=== PATIENT | male | born 1960 | race Caucasian/White ===

== ENCOUNTER 2022-02-23 14:42 | Emergency (ER) | payer OTHER ==
--- OUTSIDE RECORDS SUMMARY | 2022-02-23 14:46 | XMS REPORT | Continuity of Care Document ---
:1960 Author Organization [facility] t Address [address] [place] [address] Care Team Providers Name Role Phone Hood Hernandez DO Primary Care Physician Hood Hernandez Attending Clinician Unavailable Roberta Amador Attending Clinician Payers Payer Name Policy Type Policy Number Effective Date Expiration Date S ource Problems Condition Condition Condition Status Onset Resolution Last Treating Co mments Source Name Details Category Date Date Treatment Clinician Date Essential Essential Disease Active Uni vers hypertensi hypertensi 4-15 it y of on on 00:00: [address] Hyperlipid Hyperlipid Disease Active U nivers emia with emia with 4-15 [place] 00 [facility] lipoprotei lipoprotei Br anch n (LDL) n (LDL) cholestero cholestero l less l less than 100 than 100 mg/dL mg/dL Allergies, Adverse Reactions, Alerts Allergy Allergy Status Severity Reaction(s) Onset Inactive Treating Comm ents Source Name Type Date Date Clinician Iodine Propensi Active Unknown - Unive rs ty to See comments 4-15 ity of adverse 00:00: [place] reaction 00 Medical s Branch Social History Social Habit Start Date Stop Date Quantity Comments Source Alcohol intake 2021-12-16 2021-12-16 Current drinker Lisa rsity of 00:00:00 00:00:00 of alcohol [place] [facility] (finding) [facility] History of 2004-09-26 Smoker University of tobacco use 00:00:00 [facility] Sex Ass[birth year] At [birth year] Universit y of 00:00:00 00:00:00 [facility] Smoking Status Start Date Stop Date Source Former smoker 2019-10-09 00:00:00 2019-10-09 00:00:00 Universi ty of [facility] Medications Ordered Filled Start Stop Current Ordering Indication Dosage Frequency Signature Comments Components Source Medication Medication Date Date Medication? Clinician (SIG) Name Name ampicillin 2021- Yes [id number] 500mg Take 1 Univers 500 mg 12-16 capsule by ity of capsule 00:00: 04:59 mouth [place] 00 :00 every 6 Medical (six) Branch hours for 7 days. cetirizine Yes Take by [facility] ers HCl (ZYRTEC 1-16 mouth. ity of ORAL) 09:54: [place] 34 Medical Branch fluticasone Yes [id number] 2{spray Use 2 Univers propionate 1-16 } Sprays in ity of 50 00:00: each [place] mcg/actuati 00 nostril Medic al on nasal daily. Branch spray ATENOLOL 50 Yes [id number] TAKE ONE Univers mg tablet 1-28 TABLET BY ity o f 00:00: MOUTH 00 DAILY Medical Branch LOVASTATIN 2019-06 Yes [id number] TAKE ONE Univers 20 mg 0-28 TABLET BY ity of tablet 00:00: MOUTH [place] 00 DAILY Medical Branch meloxicam Yes [id number] 15mg Take 1 Un alessandra 15 mg 4-27 tablet by ity of tablet 00:00: mouth once [place] 00 daily as Medical needed for Branch Pain or Inflammati on. Take with food. methocarbam Yes [id number] 500mg Take 1 Univers ol 500 mg 4-27 tablet by ity o f tablet 00:00: mouth 4 [place] 00 (four) Medical times Branch daily as needed (muscle pain or spasm). terbinafine 2019-0 Yes [id number] 250mg Take 1 Univers HCl 250 mg 9-30 tablet by ity of tablet 00:00: mouth [place] 00 daily. Medical Branch clotrimazol 2019-0 Yes [id number] Apply to [facility] e-betametha 9-30 area(s) 2 ity of sone cream 00:00: (two) [place] 00 times Medical daily. [place] Immunizations Ordered Filled Immunization Date Status Comments [facility] e Immunization Name Name Td 2021-11-06 Completed [facility] 00:00:00 [facility] Zoster(Zostavax)(Sh 2017-02-26 Completed [facility] ingles) 00:00:00 [facility] Procedures This patient has no known procedures. Encounters Start End Encounter Admission Attending Care Care Encounter Source Date/Time Date/Time Type Type Clinicians Facility Department ID 2021-12-04 Outpatient Viri [facility] [id number] 2 Common 13:44:01 Hood [facility] 2021-12-18 2021-12-18 Telephone [facility] [id number] Univers 00:00:00 00:00:00 APJeT [id number] i ty of YONKERS [id number] Richar as CLEMENT?BLEA [id number] [place] helena CAZARES [address] [place] [address] MEDICAL OFFICE BUILDING Results This patient has no known results.
[2022-02-23 15:33] LABS: Absolute Lymphocytes (CBC) 1.9 K/uL (0.7-4.9); Hematocrit 43.9 % (39.6-49.0); Lymphocytes % 30.8 % (15.3-44.8); MCV 93.7 fL (80-100); MPV 7.7 fL (7.6-11.3); RBC Red Blood Cell Count 4.69 M/uL (4.33-5.43)
[2022-02-23 15:50] LABS: Bilirubin Total 0.4 mg/dL (0.2-1.0); Potassium 3.7 mmol/L (3.5-5.1); Protein, Total 7.5 g/dL (6.4-8.2)
[2022-02-23 15:54] LABS: Urine Crystals Unidentified Many /HPF (None Seen); Urine RBC >50 /HPF (None Seen); Urine WBC Clump Many /HPF (None Seen)
[2022-02-23 15:55] LABS: Protime INR 1.02
[2022-02-23] MEDS ORDERED: CEFTRIAXONE 1000 MG/VIAL ONE (16:43)
--- NOTE | 2022-02-23 17:43 | RAD REPORT ---
EXAM DESCRIPTION: CT - Stone Protocol - 02/23/2022 5:28 pm CLINICAL HISTORY: Hematuria COMPARISON: None. TECHNIQUE: Computed axial tomography of the abdomen pelvis was obtained without oral or IV contrast. Lack of IV and oral contrast limits evaluation of solid organs, appendix, bowel, and vessels. Fajardo l reformatted images were obtained and reviewed. All CT scans are performed using dose optimization technique as appropriate and may include automated exposure control or mA/KV adjustment according to patient size. FINDINGS: 3 millimeter calculus left kidney. No hydronephrosis. No right renal calculus An ureteral calculus is not noted. A bladder calculus is not present. The liver, spleen, pancreas and adrenals appear grossly normal There is no evidence of diverticulitis. The appendix appears normal Inguinal hernia repair IMPRESSION: Nonobstructing left renal calculus
--- NOTE | 2022-02-23 17:55 | EDPHYS ---
Physician Documentation [facility] Name: Miko Estrada Age: 61 yrs Sex: Male : 1960 Arrival Date: 02/23/2022 Time: 14:47 Bed 8 Private MD: Hood Meredith ED Physician Donato Veloz HPI: 02/23 15:20 This 61 yrs old Male presents to ER via Ambulatory with complaints of blood in urine. cp 15:20 The patient presents with urinary symptoms, hematuria. Onset: The symptoms/episode cp began/occurred today, after lunch. 15:20 Associated signs and symptoms: Pertinent positives: hematuria, Pertinent negatives: cp abdominal pain, dysuria, fever, nausea, vomiting. Severity of symptoms: in the emergency department the symptoms are unchanged, despite home interventions. 15:20 Patient denies taking prescribed blood thinner. cp Historical: - Allergies: 15:11 iodine; aa5 - PMHx: 15:11 Hypertensive disorder; Hypercholesterolemia; aa5 - PSHx: 15:11 hernia sx; aa5 - Immunization history:: Adult Immunizations unknown. - Social history:: Smoking status: Patient denies any tobacco usage or history of. ROS: 15:25 Constitutional: Negative for body aches, chills, fever, poor PO intake. cp 15:25 Eyes: Negative for injury, pain, redness, and discharge. cp 15:25 ENT: Negative for drainage from ear(s), ear pain, sore throat, difficulty swallowing, difficulty handling secretions. 15:25 Cardiovascular: Negative for chest pain, edema, palpitations. 15:25 Respiratory: Negative for cough, shortness of breath, wheezing. 15:25 Abdomen/GI: Negative for abdominal pain, nausea, vomiting, and diarrhea. 15:25 Back: Negative for pain at rest, pain with movement. 15:25 : Positive for hematuria, Negative for flank pain, testicular pain 15:25 Neuro: Negative for altered mental status, headache, weakness. 15:25 All other systems are negative. Exam: 15:30 Constitutional: The patient appears in no acute distress, alert, awake, comfortable, cp non-toxic, well developed, well nourished. 15:30 Head/Face: Normocephalic, atraumatic. cp 15:30 Eyes: Periorbital structures: appear normal, Conjunctiva: normal, no exudate, no injection, Sclera: no appreciated abnormality, Lids and lashes: appear normal, bilaterally. 15:30 ENT: External ear(s): are unremarkable, Nose: is normal, Mouth: Lips: moist, Oral mucosa: moist, Posterior pharynx: Airway: no evidence of obstruction, patent. 15:30 Chest/axilla: Inspection: normal. 15:30 Cardiovascular: Rate: bradycardic, Rhythm: regular, Edema: is not appreciated, JVD: is not appreciated. 15:30 Respiratory: the patient does not display signs of respiratory distress, Respirations: normal, no use of accessory muscles, no retractions, labored breathing, is not present, Breath sounds: are clear throughout, no decreased breath sounds, no stridor, no wheezing. 15:30 Abdomen/GI: Inspection: abdomen appears normal, Bowel sounds: active, all quadrants, Palpation: abdomen is soft and non-tender, in all quadrants. 15:30 Back: CVA tenderness, is absent. Vital Signs: 15:10 BP 146 / 84; Pulse 56; Resp 16 S; Temp 99.0(TE); Pulse Ox 99% on R/A; aa5 16:30 BP 159 / 82; Pulse 57; Resp 18; Pulse Ox 98% on R/A; Pain 0/10; ld1 17:30 BP 139 / 79; Pulse 55; Resp 16; Pulse Ox 99% on R/A; eh3 MDM: 16:23 Patient medically screened. cp 17:54 Data reviewed: vital signs, nurses notes, lab test result(s), radiologic studies, CT cp scan. 17:54 Differential diagnosis: UTI, prostatitis, kidney stone. Counseling: I had a detailed cp discussion with the patient and/or guardian regarding: the historical points, exam findings, and any diagnostic results supporting the discharge/admit diagnosis, lab results, radiology results, the need for outpatient follow up, a urologist, to return to the emergency department if symptoms worsen or persist or if there are any questions or concerns that arise at home. 02/23 15:16 Order name: CBC with Diff; Complete Time: 16:17 cp 02/23 16:18 Interpretation: Reviewed. cp 02/23 15:16 Order name: CMP; Complete Time: 16:17 cp 02/23 16:17 Interpretation: Normal except: CRE 1.33; GFR 60. cp 02/23 15:16 Order name: Lipase; Complete Time: 16:17 cp 02/23 17:11 Interpretation: Reviewed. 02/23 15:16 Order name: Urine Microscopic Only; Complete Time: 16:17 cp 02/23 16:17 Interpretation: Abnormal: UWBC >50; URBC >50; UNCX Many; UWBC Clump Many. 02/23 15:18 Order name: PT-INR; Complete Time: 16:17 02/23 17:42 Interpretation: Reviewed. 02/23 15:18 Order name: Ptt, Activated; Complete Time: 16:17 cp 02/23 15:16 Order name: IV Saline Lock; Complete Time: 15:17 02/23 15:16 Order name: Labs collected and sent; Complete Time: 15:17 cp 02/23 15:16 Order name: Urine Dipstick-Ancillary (obtain specimen); Complete Time: 17:06 cp 02/23 15:58 Order name: Urine Culture [facility] 02/23 16:19 Order name: CT Stone Protocol; Complete Time: 17:46 cp Administered Medications: 16:39 Drug: Rocephin (cefTRIAXone) 1 grams Route: IV; Rate: calculated rate; Site: left ld1 antecubital; 16:40 Follow up: Response: No adverse reaction; IV Status: Completed infusion; IV Intake: [id number] 18:38 Drug: LevaQUIN (levofloxacin) 750 mg Route: PO; eh3 18:46 Follow up: Response: No adverse reaction eh3 Disposition Summary: 02/23/22 17:54 Discharge Ordered Location: Home cp Problem: new cp Symptoms: have improved cp Condition: Stable cp Diagnosis - Calculus of kidney - left cp - UTI/ Urinary tract infection, site not specified cp Followup: cp - With: Daniel Smith MD - When: 2 - 3 days - Reason: Recheck today's complaints Discharge Instructions: - Discharge Summary Sheet cp - Kidney Stones cp - Urinary Tract Infection, Adult cp Forms: - Medication Reconciliation Form cp - Thank You Letter cp - Antibiotic Education cp - Prescription Opioid Use cp Prescriptions: - levofloxacin 500 mg Oral Tablet - take 1 tablet by ORAL route once daily for 8-10 days continue taking evening of cp 02/24/2022; 9 tablet; Refills: 0, Product Selection Permitted Signatures: Dispatcher [employer] EDMS Reyna Isbell RN RN aa5 Donato Adame PA PA cp Dibbern, Lauren, RN RN ld1 Lida Francisco RN RN eh3 Corrections: (The following items were deleted from the chart) 15:12 15:11 Allergies: No Known Allergies; aa5 aa5 15:12 15:11 Allergies: Iodinated Contrast Media - IV Dye; aa5 aa5 15:50 15:25 URINALYSIS+U.LAB.BRZ ordered. EDMS EDMS
--- NOTE | 2022-02-23 17:55 | ER ---
Nurse's Notes [facility] Name: Miko Estrada Age: 61 yrs Sex: Male : 1960 Arrival Date: 02/23/2022 Time: 14:47 Bed 8 Private MD: Hood Meredith Diagnosis: Calculus of kidney-left;UTI/ Urinary tract infection, site not specified Presentation: 02/23 15:10 Chief complaint: Patient states: urinating blood that began today after lunch. Pt aa5 denies pain. Coronavirus screen: At this time, the client does not indicate any symptoms associated with coronavirus-19. Ebola Screen: Patient denies travel to an Ebola-affected area in the 21 days before illness onset. Initial Sepsis Screen: Does the patient meet any 2 criteria? No. Patient's initial sepsis screen is negative. Does the patient have a suspected source of infection? No. Patient's initial sepsis screen is negative. Risk Assessment: Do you want to hurt yourself or someone else? Patient reports no desire to harm self or others. Onset of symptoms was February 2022. 15:10 Method Of Arrival: Ambulatory aa5 15:10 Acuity: SAMINA 3 aa5 Historical: - Allergies: 15:11 iodine; aa5 - PMHx: 15:11 Hypertensive disorder; Hypercholesterolemia; aa5 - PSHx: 15:11 hernia sx; aa5 - Immunization history:: Adult Immunizations unknown. - Social history:: Smoking status: Patient denies any tobacco usage or history of. Screenin:30 Abuse screen: Denies threats or abuse. Denies injuries from another. Nutritional ld1 screening: No deficits noted. Tuberculosis screening: No symptoms or risk factors identified. Fall Risk None identified. Assessment: 16:52 General: Appears in no apparent distress. comfortable, Behavior is calm, cooperative, ld1 appropriate for age. Pain: Denies pain. Neuro: Level of Consciousness is awake, alert, obeys commands, Oriented to person, place, time, situation. Cardiovascular: Capillary refill < 3 seconds Patient's skin is warm and dry. Respiratory: Airway is patent Respiratory effort is even, unlabored. GI: No signs and/or symptoms were reported involving the gastrointestinal system. Abdomen is flat, non-distended. : Urine is iveth blood, Reports blood in urine starting around 1300 today and no other symptoms. EENT: No signs and/or symptoms were reported regarding the EENT system. Derm: No signs and/or symptoms reported regarding the dermatologic system. Musculoskeletal: No signs and/or symptoms reported regarding the musculoskeletal system. Vital Signs: 15:10 BP 146 / 84; Pulse 56; Resp 16 S; Temp 99.0(TE); Pulse Ox 99% on R/A; aa5 16:30 BP 159 / 82; Pulse 57; Resp 18; Pulse Ox 98% on R/A; Pain 0/10; ld1 17:30 BP 139 / 79; Pulse 55; Resp 16; Pulse Ox 99% on R/A; eh3 ED Course: 14:47 Patient arrived in ED. am2 14:47 Hood Meredith DO is Private Physician. am2 15:06 Donato Adame PA is PHCP. cp 15:06 Donato Veloz MD is Attending Physician. cp 15:10 Triage completed. aa5 15:10 Arm band placed on. aa5 16:22 Kimberlee Smith RN is Primary Nurse. ld1 16:30 Patient has correct armband on for positive identification. Bed in low position. Call ld1 light in reach. Side rails up X2. Client placed on continuous cardiac and pulse oximetry monitoring. NIBP monitoring applied. Door closed. Noise minimized. Lights dimmed. Warm blanket given. 16:30 No provider procedures requiring assistance completed. ld1 16:55 Kimberlee Smith RN is Primary Nurse. ld1 17:06 Urine Culture Sent. eh3 17:29 CT Stone Protocol In Process Unspecified. EDMS 17:53 Daniel Smith MD is Referral Physician. cp 18:46 IV discontinued, intact, bleeding controlled, No redness/swelling at site. Pressure eh3 dressing applied. Administered Medications: 16:39 Drug: Rocephin (cefTRIAXone) 1 grams Route: IV; Rate: calculated rate; Site: left ld1 antecubital; 16:40 Follow up: Response: No adverse reaction; IV Status: Completed infusion; IV Intake: [id number] 18:38 Drug: LevaQUIN (levofloxacin) 750 mg Route: PO; eh3 18:46 Follow up: Response: No adverse reaction eh3 Medication: 16:30 VIS not applicable for this client. ld1 Intake: 16:40 IV: 10ml; Total: 10ml. eh3 Outcome: 17:54 Discharge ordered by . cp 18:45 Discharged to home ambulatory. eh3 18:45 Condition: stable 18:45 Discharge instructions given to patient, Instructed on discharge instructions, follow up and referral plans. medication usage, Demonstrated understanding of instructions, follow-up care, medications, Prescriptions given X 1. 18:46 Patient left the ED. eh3 Signatures: Dispatcher [employer] EDMS Reyna Isbell RN RN aa5 Donato Adame, DK PA Dilia Culp Lauren, RN RN ld1 Lida Francisco RN RN eh3 Corrections: (The following items were deleted from the chart) 15:12 15:11 Allergies: No Known Allergies; aa5 aa5 15:12 15:11 Allergies: Iodinated Contrast Media - IV Dye; aa5 aa5
[2022-02-23] MEDS ORDERED: levoFLOXacin 750 MG TAB ONE (18:46)
[2022-02-23 20:42] VITALS: TEMP 99
[2022-02-23 20:47] VITALS: BP 139/79; O2SAT 99
== END 2022-02-23 18:46 | disposition home or self-care (01) ==
LOC: ER 14:42
DX: N20.0 Calculus of kidney (principal); N39.0 Urinary tract infection, site not specified; I10 Essential (primary) hypertension; Z91.048 Other nonmedicinal substance allergy status
CPT/HCPCS: 36415; 74176; 76377; 80053; 81015; 83690; 85025; 85610; 85730; 87086; 87088; 96374; 99284

== ENCOUNTER 2022-05-12 09:19 | Day surgery (SDC) | payer OTHER ==
--- NOTE | 2022-05-04 11:24 | RAD REPORT ---
EXAM DESCRIPTION: RAD - Chest Pa And Lat (2 Views) - 05/04/2022 10:39 am CLINICAL HISTORY: Pre op pending TURBT COMPARISON: None TECHNIQUE: Frontal and lateral views of the chest were obtained. FINDINGS: The lungs are clear. No hilar mass or lymphadenopathy. Heart size is normal and central v asculature is within normal limits. No pleural effusion or pneumothorax seen. No acute bony finding noted. No aortic abnormality. IMPRESSION: No acute cardiopulmonary process.
[2022-05-04 11:25] LABS: Hematocrit 44.1 % (39.6-49.0); Lymphocytes % 35.5 % (15.3-44.8); MCV 93.9 fL (80-100); MPV 7.9 fL (7.6-11.3)
[2022-05-04 11:26] LABS: Protime INR 1.03
--- NOTE | 2022-05-04 15:27 | EKG ---
Test Date: 2022-05-04 Test Time: 10:47:37 Advertiser: JULIETA MEASUREMENT RESULTS: Intervals: Rate: 54 LA: 170 QRSD: 92 QT: 402 QTc: 381 [place]: P: 55 LA: 170 QRS: 49 T: 50 INTERPRETIVE STATEMENTS: Sinus bradycardia with premature atrial complexes Otherwise normal ECG No previous ECG available for comparison Electronically Signed On 05-04-22 15:27:04 [employer]ING [employer]ESSING SUPERVISOR by Bryson Mcghee
[2022-05-12] MEDS ORDERED: Ringers Lactate 1,000 ML IV ONE (09:37)
[2022-05-12] MEDS ORDERED: CEFAZOLIN SODIUM 2 GM/VIAL ONE (09:37)
[2022-05-12] MEDS ORDERED: propofoL 200 MG/20 ML VIAL IV ONE (12:17)
[2022-05-12] MEDS ORDERED: LIDOCAINE 1% MPF 5 ML VIAL ONE (12:18)
[2022-05-12] MEDS ORDERED: ONDANSETRON 4 MG/2 ML VIAL ONE (12:18)
[2022-05-12] MEDS ORDERED: FENTANYL CITR 100 MCG/2 ML ONE (12:18)
[2022-05-12] MEDS ORDERED: MIDAZOLAM HCL 2 MG/2 ML INJ ONE (12:18)
[2022-05-12] MEDS: GEMCITABINE HCL 26.3 ML IVPB ONE ×2 (13:54→14:00)
[2022-05-12] MEDS ORDERED: OPIUM/BELLADONNA SUPPOS (30-16.2 MG) PR ONE (14:00)
[2022-05-12] MEDS ORDERED: HYDROCODONE/APAP 5/325 MG TAB PO PRN (14:45)
[2022-05-12] MEDS ORDERED: HYDROMORPHONE HCL 1 MG/ML INJ ONE (15:32)
[2022-05-12] MEDS ORDERED: PHENAZOPYRIDINE 100MG TAB PO ONE ×2 (15:50→16:10)
[2022-05-12] MEDS ORDERED: HYDROCODONE/APAP 5/325 MG TAB ONE (16:09)
[2022-05-12 16:18] VITALS: BP 158/79; TEMP 97.8
[2022-05-12 17:16] VITALS: O2SAT 100
--- NOTE | 2022-05-13 10:09 | OP ---
Surgeon: FIDENCIO CABRERA Preoperative Diagnosis: Bladder tumor, multifocal. Postoperative Diagnosis: Bladder tumor, multifocal. Principal Procedures: 1.Transurethral resection of a bladder tumor. 2.Bladder biopsies with fulguration. 3.Insertion of urethral Flower catheter. 4.Intravesical gemcitabine chemotherapy 2 g and 50 cc normal saline. 5.Urethral dilation using sounds. Indication For Procedure: Mr. Estrada presented to the Urology Clinic with gross hematuria and unde rwent evaluation including a cystoscopy and a CT urogram. The CT urogram showed no evidence of intra abdominal metastases, only indicating the presence of a 3 mm stone in the lower pole of the left kidn ey, but there was no retroperitoneal adenopathy. It did observe a 17 mm enhancing lesion along the l eft ventral bladder wall. It also noted a portion of the bladder extended into the right inguinal he rnia. Cystoscopy as an outpatient revealed nodular tumor within the left posterior dome of the bladd er with additional multifocal mucosal change noted within the right posterior dome of the bladder as well as anteriorly. As a result, he was counseled on the need for staging resection of the bladder t umor and recommended for intravesical gemcitabine chemotherapy to decrease the risk of tumor cell imp lantation following resection. Procedure In Detail: The patient was consented in the preoperative holding area, before being transf erred to the operative suite where general anesthesia was induced. He was given Ancef 2 g IV antimic robial prophylaxis and Pneumoboots were provided for DVT prophylaxis. He was placed in the lithotomy position, padded and secured to the table appropriately. His genitalia were prepped with Hibiclens and he was draped in standard fashion. The case was begun using a 26-Chilean resectoscope to traverse the urethra and into the bladder with ease. Prior to inserting the resectoscope, I dilated the meat us and fossa navicularis to 30-Chilean using urethral sounds. Upon entry into the bladder, I decompre ssed it off fluid and urine and then refilled it with saline and surveyed the bladder in its entirety . As had been previously noted, a nodular area of tumor with mucosal change surrounding it, extendin g approximately 4 to 5 cm in diameter, was observed in the left posterior wall of the bladder extendi ng into the dome anteriorly. Additionally, extending into the right lateral wall of the bladder was also mucosal change with nodularity consistent with likely additional bladder tumor there. There wer e other subtle areas of mucosal change noted multifocally within the posterior wall of the bladder an d anteriorly, all suspicious for malignancy. As a result, I began using the resectoscope and the thi n loop in a bipolar fashion to resect the nodular tumor from the left anterior wall. The tumor was s olid and did not bleed significantly and after resecting through several mm of tumor, the tumor did e xtend apparently into the base and likely involved the true detrusor muscle layers. I continued the resection down to where the true detrusor was identified, attempting to remove as much of the nodular tumor from within the detrusor muscle layers as possible without achieving a gross perforation. I w as largely successful in this, but given the multifocality of the tumor and mucosal change extensive within his bladder, a complete resection was not going to be possible. As a result, I turned my atte ntion to the tumor identified in the right posterolateral wall of the bladder and used cold cup biops y forceps to sample the tumor in that location. As this was less nodular, this was amenable to the c old cup biopsy technique. However, anterior to this, within the right lateral anterior wall of the b ladder, additional nodular tumor tissue was noted and this was resected. That tissue was sent with t albino original bladder tumor for analysis. Of note, the deeper resections to remove the tumor from with in the muscle layers from the left posterior dome site was sent as deep resection of the left posteri or dome bladder tumor. Careful fulguration along the periphery of the tumor resection sites was perf ormed with fulguration of any bleeding vessels within the base of the tumor, with the bladder decompr essed was performed. Photographs of the resection site were taken and provided to the family of the patient. I Naresh evacuated all chips and circulating tumor cells from within the bladder before leav ing the bladder full of saline and placing an 18-Chilean Flower catheter into his bladder with ease. 2 0 cc of sterile water was placed in the balloon, and his bladder was decompressed off fluid and urine . I then irrigated the catheter to remove any circulating tumor cells, debris, or air bubbles. The returning efflux was clear. As a result, with his bladder completely decompressed, I then retrograde filled his bladder with gemcitabine 2 g in 50 cc normal saline. The catheter was clamped, keeping t he chemotherapy within the bladder, and a belladonna and opium suppository was placed into his rectum . His genitalia were towelled off and the catheter bag was placed inside of fluid impermeable kika y. He was then taken out of the lithotomy position, awakened from general anesthesia, transferred to a stretcher, and then transferred to the recovery room in good condition. Complications: None. Discharge Disposition: Given the extensive nature of the resection performed, I would like for him t o keep the urethral catheter for at least the next 3 to 5 days minimum. Preferably, we would remove the catheter on Wednesday. I will provide him with prophylactic Bactrim to take once a day until after the catheter is removed for the next 7 days. Subsequent followup should be established within the ne xt 1 to 2 weeks to discuss the results of the pathology. I did pet adoption counselor the patient's and sister of my clinical impression that this nodular tumor was indeed muscle invasive. SAMSON/SHERYL Voice ID: [id number] Report ID: [id number]
== END 2022-05-12 17:05 | disposition home or self-care (01) ==
LOC: OR 09:19
PROVIDERS: ATTEND Urology
PROC: 3E0K705 Introduction of Other Antineoplastic into Genitourinary Tract, Via Natural or Artificial Opening (ICD-10-PCS; 2022-05-12)
PROC: 0TBB8ZX Excision of Bladder, Via Natural or Artificial Opening Endoscopic, Diagnostic (ICD-10-PCS; 2022-05-12)
PROC: 0TBB8ZX Excision of Bladder, Via Natural or Artificial Opening Endoscopic, Diagnostic (ICD-10-PCS; principal; 2022-05-12 11:00)
DX: C67.1 Malignant neoplasm of dome of bladder (principal); R31.0 Gross hematuria
CPT/HCPCS: 52235; 51720; 52204; 93005; 87088; 85025; 87086; 36415; 85610; 88305; 88307; 71046; J2704; J2001; J2250; J3010; J1170; J9201; J7120; J2405